=== PATIENT | female | born 1955 | race Two or more races ===

== ENCOUNTER 2023-06-18 16:41 | Emergency (ER) | payer MEDICAID ==
[~2023-06-18] VITALS: Ht 154.9 cm; Wt 54.0 kg
[2023-06-18 16:45] VITALS: O2SAT 100
[2023-06-18] MEDS ORDERED: ACET-2708 MT (18:53)
[2023-06-18 19:23] VITALS: BP 158/75; PULSE 59; RESP 18; TEMP 98.6
== END 2023-06-18 19:25 | disposition home or self-care (01) ==
LOC: ER 16:41
DX: M25.532 Pain in left wrist (principal); Z90.49 Acquired absence of other specified parts of digestive tract
CPT/HCPCS: 29125; 73110; 99283